=== PATIENT | male | born 1990 | race Two or more races ===

== ENCOUNTER 2025-07-07 18:06 | Emergency (ER) | payer OTHER ==
[~2025-07-07] VITALS: Ht 160 cm; Wt 71.0 kg
[2025-07-07 19:51] LABS: PLATELET COUNT (AUTO) 160 K/uL (150-450); RED BLOOD CELL COUNT(AUTO) 5.19 MIL/uL (4.50-5.90); RED CELL DISTRIBUTION WIDTH 14.4 % (11.5-14.5); WHITE BLOOD COUNT (AUTO) 7.6 K/uL (4.5-11.0)
[2025-07-07 19:57] LABS: CALCIUM, TOTAL 9.0 mg/dL (8.8-10.5); CREATININE 0.81 mg/dL (0.60-1.30); GLOMERULAR FILTR. RATE CALC > 60 mL/min (>60); GLUCOSE,RANDOM 95 mg/dL (70-110); SODIUM SERUM 143 mmol/L (136-145); UREA NITROGEN, BLOOD 8 mg/dL (7-18)
[2025-07-07] MEDS ORDERED: 0.9% SODIUM CHLORIDE 10 ML SYRINGE IVP ONE (20:54)
[2025-07-07] MEDS ORDERED: IOHEXOL 350 MG/ML 100 ML VIAL ONE (20:54)
[2025-07-07] MEDS ORDERED: SODIUM CHLORIDE 0.9% 100 ML ONE (20:54)
[2025-07-07 21:13] VITALS: BP 130/75; PULSE 63; RESP 18; TEMP 98.505320; O2SAT 99
[2025-07-07] MEDS: SODIUM CHLORIDE 0.9% 1,000 ML IV ONE (22:48)
[2025-07-08 00:13] LABS: APPEARANCE,URINE CLEAR (CLEAR); GLUCOSE, URINE (UA) NEGATIVE (NEGATIVE); LEUKOCYTE ESTERASE ,URINE LARGE (NEGATIVE); NITRATE,URINE NEGATIVE (NEGATIVE); OCCULT BLOOD,URINE NEGATIVE (NEGATIVE)
[2025-07-08 00:19] LABS: SPECIFIC GRAVITIY, URINE 1.030 (1.003-1.030)
[2025-07-08] MEDS: CEPHALEXIN MONOHYDRATE 500 MG CAPSULE PO ONE (00:54)
[2025-07-08 01:06] LABS: SQUAMOUS EPITHELIAL CELL,UR Moderate /LPF (None Seen)
== END 2025-07-08 01:00 ==
LOC: EMS 18:22
DX: R19.5 Other fecal abnormalities (principal); R30.0 Dysuria; K59.00 Constipation, unspecified; F17.210 Nicotine dependence, cigarettes, uncomplicated
CPT/HCPCS: 99285; 71260; 96360; 80048; 81001; 85025; 87086; 36415; 72193; 74160; Q9967; J7030; J7050